=== PATIENT | female | born 1950 | race Caucasian/White ===

== ENCOUNTER 2019-01-05 07:36 | Day surgery (SDC) | payer MEDICARE, BC ==
[2019-01-05] MEDS ORDERED: Dextrose 5%-Lactated Ringers 1,000 ML IV SCH (08:15)
[2019-01-05] MEDS ORDERED: fentaNYL 100 MCG/2 ML SDV ONE (08:48)
[2019-01-05] MEDS ORDERED: Midazolam 1 MG/ML 2 ML SDV ONE (08:49)
[2019-01-05] MEDS ORDERED: Propofol 200 MG/20 ML SDV ONE (08:49)
[2019-01-05] MEDS ORDERED: Atropine 0.4 MG/ML SDV ONE (09:16)
[2019-01-05 10:34] VITALS: BP 88/47; PULSE 63
--- NOTE | 2019-01-11 10:57 | OR ---
DATE OF PROCEDURE: 11/30/2018 PREOPERATIVE DIAGNOSIS: History of cecal polyp. POSTOPERATIVE DIAGNOSIS: Normal colonoscopic examination. OPERATIVE PROCEDURE: Flexible colonoscopy. ANESTHESIA: IV sedation. INDICATION FOR PROCEDURE: This is a 68-year-old with previous history of a cecal polyp having been removed presenting for followup colonoscopy with biopsies and polypectomy as indicated. Potential risks including bleeding and perforation were discussed, and the patient wishes to proceed. DETAILS OF PROCEDURE: The patient was taken to the operating room and placed in a left lateral decubitus position. IV sedation was administered, after which the initial digital rectal exam was performed. It was unremarkable. Colonoscope was then passed into the rectum with retroflexion revealing uncomplicated hemorrhoidal columns. The scope was then passed eventually to the cecum. The prep was quite good with only a small amount of liquid stool being present to that level. No abnormalities were noted. Specifically, there were no areas of diverticulosis. No areas of colitis and no polyps or other signs of neoplasia. The scope was then withdrawn, the above findings reconfirmed, and the procedure then concluded. Given the history of cecal polyp in the past, recommendation would be to repeat the colonoscopy in 5 years. Wilber Johnson MD /[id number]
== END 2019-01-05 10:38 | disposition home or self-care (01) ==
LOC: JP.SDS 07:36
PROVIDERS: ATTEND Surgery
DX: Z12.11 Encounter for screening for malignant neoplasm of colon (principal); K64.9 Unspecified hemorrhoids; E78.5 Hyperlipidemia, unspecified; E03.9 Hypothyroidism, unspecified; Z88.8 Allergy status to other drugs, medicaments and biological substances; Z86.010 Personal history of colon polyps
CPT/HCPCS: G0121; J0461; J2250; J2704; J3010; J7042

== ENCOUNTER 2024-03-31 06:31 | Day surgery (SDC) | payer MEDICARE, BC ==
[2024-03-31] MEDS: Sodium Chloride 0.9% 1,000 ML IV SCH (07:11)
[2024-03-31] MEDS ORDERED: Propofol 200 MG/20 ML SDV ONE (07:25)
[2024-03-31] MEDS ORDERED: fentaNYL 100 MCG/2 ML SDV ONE (07:25)
[2024-03-31 09:49] VITALS: BP 127/53; PULSE 52
== END 2024-03-31 09:52 | disposition home or self-care (01) ==
LOC: JP.SDS 06:31
PROVIDERS: ATTEND Surgery
DX: Z12.11 Encounter for screening for malignant neoplasm of colon (principal); K63.5 Polyp of colon; K62.1 Rectal polyp; K57.30 Diverticulosis of large intestine without perforation or abscess without bleeding; E78.5 Hyperlipidemia, unspecified; E03.9 Hypothyroidism, unspecified; Z86.0100 Personal history of colon polyps, unspecified
CPT/HCPCS: 00811; 45380; 88305; J2704; J3010; J7030